=== PATIENT | male | born 1955 ===

== ENCOUNTER → 2022-03-13 09:54 | Outpatient (BNVA) | payer MEDICARE, BC, SELFPAY | PROVIDERS: PCP Internal Medicine; Visit Provider Psychiatry & Neurology Neurology | DX: R20.2 Paresthesia of skin (principal); R51.9 Headache, unspecified; M54.2 Cervicalgia | CPT/HCPCS: 99202 ==

== ENCOUNTER → 2022-06-17 10:32 | Outpatient (BNVA) | payer MEDICARE, BC, SELFPAY | PROVIDERS: PCP Internal Medicine; Visit Provider Psychiatry & Neurology Neurology | DX: R42 Dizziness and giddiness (principal); R41.3 Other amnesia; R51.9 Headache, unspecified; M54.2 Cervicalgia | CPT/HCPCS: 99212 ==

== ENCOUNTER 2022-07-02 09:42 | Outpatient (RCR) | payer MEDICARE, BC, SELFPAY ==
[2022-07-02 09:47] VITALS: BP 150/82; PULSE 80; O2SAT 97
--- NOTE | 2022-07-02 11:01 | MHC.PT.EP ---
[facility] [place] Office [place] [facility] [place] Office [address] Ariadne Soria [address] [phone] F: [phone] F: [phone] F: [phone] F: [phone] Physical Therapy Plan of Care Date of Evaluation: Date of Surgery: Diagnosis: This is a 67 yo male presenting to skilled PT with a script for vertigo. Assessment: This is a 67 yo male presenting to skilled PT with a script for vertigo. Patient reporting symptoms ongoing for many years now however improved until about a year ago now. He had vertigo in the past and was treated with medication; this was helpful. He reports that symptoms are swishing in ears and dizziness when bending over. He reports that he has had decreased balance from the symptoms however is also legally blind as well. PT unable to exam oculomotor tests due to visual impairments at rest, (-) VBI B, but decreased cervical AROM. He was (-) for BPPV with remebrto-hallpike B and roll test B. Balance at baseline is not normal due to visual impairments once again. I assessed orthostatic based on his verbal reports however these were WNL. S/S are not consistent with BPPV or vestibular issues at this time. Recommended follow back up with referring PCP at this time. Frequency and Duration: The patient will be seen Short Term Goals: referral back to PCP Export Sales Assistant Goals: (if needed in future) I in HEP Demo no nystagmus or dizziness in any testing positions Demo normal balance and gait pattern Treatment Plan: Modalities to reduce pain, spasms and effusion. Manual therapy to restore motion and function. Therapeutic exercise to improve strength and flexibility. Neuromuscular re-education for posture and balance. Therapeutic activities to return to functional activities of daily living. Electronically signed by: Chika James PT Please sign and return to therapist. Thank you for your referral.
--- NOTE | 2022-08-10 15:15 | MHC.PT.DC ---
[facility] [place] Office [place] Office [place] Office [address] Ariadne Soria [address] [phone] F: [phone] F: [phone] F: [phone] F: [phone] Physical Therapy Discharge Report Diagnosis: This is a 67 yo male presenting to skilled PT with a script for vertigo. Date of Surgery: Date of Evaluation: 07/02/22 Date of Discharge: 08/10/22 Treatments to Date: 1 Cancellations to Date: 0 No Shows to Date: 0 Discharge Status: Recommend MD Follow-up Discharge Summary: This is a 67 yo male presenting to skilled PT with a script for vertigo. Patient reporting symptoms ongoing for many years now however improved until about a year ago now. He had vertigo in the past and was treated with medication; this was helpful. He reports that symptoms are swishing in ears and dizziness when bending over. He reports that he has had decreased balance from the symptoms however is also legally blind as well. PT unable to exam oculomotor tests due to visual impairments at rest, (-) VBI B, but decreased cervical AROM. He was (-) for BPPV with remberto-hallpike B and roll test B. Balance at baseline is not normal due to visual impairments once again. I assessed orthostatic based on his verbal reports however these were WNL. S/S are not consistent with BPPV or vestibular issues at this time. Recommended follow back up with referring PCP at this time. Electronically signed by: Chika James PT Please sign and return to therapist. Thank you for your referral.
== END 2022-08-10 15:16 | disposition home or self-care (01) ==
LOC: HO.PTCHIC 09:42
PROVIDERS: Visit Provider Psychiatry & Neurology Neurology
DX: R42 Dizziness and giddiness (principal)
CPT/HCPCS: 97110; 97162; 97163

== ENCOUNTER 2022-12-16 08:42 | Outpatient (AMB) | payer MEDICARE, BC, SELFPAY ==
--- NOTE | 2022-12-16 08:44 | A.OFFVIS_ITS ---
Intake Vital Signs 12/16/22 08:48 Height 6 ft Weight 261 lb BMI 35.4 BP 136/78 Blood Pressure Location Rt brachial Position Sitting Pulse 67 Pulse Source Pulse Oximeter Pulse Oximetry (%) 96 Oxygen Delivery Method Room Air Intake Visit Reasons: 6m follow up Paresthesia-LVM Intake Note: Patient present for 6 month follow up Allergies No Known Allergies Allergy (Verified 12/16/22 08:48) Medication List - Last Reconciled 12/16/22 by Imelda Murdock MD acetaminophen (Tylenol Extra Strength) 500 mg PO Q6H PRN atorvastatin 20 mg PO BEDTIME baclofen 10 mg PO BEDTIME cholecalciferol (vitamin D3) 25 mcg PO DAILY CPAP (CPAP Machine/Device) As directed econazole 1% 1 appl topical DAILY famotidine 10 mg PO BID fluticasone propionate 50 mcg/actuation (Allergy Relief (fluticasone)) 2 sprays intranasal DAILY levothyroxine 88 mcg PO DAILY multivitamin (Daily Multi-Vitamin tablet) 1 tab PO DAILY paroxetine HCl 20 mg PO DAILY triamcinolone acetonide 0.1% 1 appl topical DAILY vitamin B complex no.10-FA 400 mcg ER tabs PO HPI HPI Comments History of Present Illness Details 67y/o male comes here for follow up of face tingling and sharp pain in his head. He describes the facial tingling , numbness in waldo V2 distribution has resolved since his last visit. He had a tooth abscess right Upper molar ? - once it was extracted the pain resolved. with baclofen his head pain and neck pain has improved- but he ran out of baclofen He used to get right temporal sharp pain it 2-3 times a day but resolved now He has neck pain and stiffness especially on the neck - less frequent now He has h/o sleep apnea on CPAP. \He reports h/o concussions and is worried about dementia- neuropsych c/w [facility]. [facility] Medical History Anxiety Blindness Carotid artery dissection Cervical radiculopathy Depression DISH (diffuse idiopathic skeletal hyperostosis) Diverticulosis Hypothyroidism Lipoma Macular degeneration Memory change Obesity ANSHUL on CPAP Retinitis pigmentosa Spinal stenosis Vertigo Vitiligo Family History Mother Acute arthritis Dementia Father Colon cancer Hx of CABG Diabetes HTN (hypertension) Acute arthritis Skin cancer Family/Other Thyroid disease Family/Other Acute arthritis Leukemia Family/Other Prostate cancer Social History Alcohol intake: current Alcohol intake frequency: holidays/special occasions only Patient Tobacco Use Status: Never used Tobacco Physical Exam Vital Signs: Last Vital Signs Pulse 67 12/16/22 08:48 BP 136/78 12/16/22 08:48 Pulse Ox 96 12/16/22 08:48 Oxygen Delivery Method Room Air 12/16/22 08:48 BMI result Body Mass Index 35.4 Const General: cooperative, comfortable and no acute distress Nutritional Appearance: obese Orientation/consciousness: patient oriented x3 HEENT Head: Yes normal to inspection Neck Other: tightness and tenderness in right levator and trapezius with restricted range of motion Mild dystonia Neuro General: patient oriented x3, tone normal and moves all extremities Cranial nerves: Yes Facial sensation intact/muscles of mastication intact, Yes Bilaterally intact EOM present, Yes Nystagmus not present, Yes Normal facial strength present and Yes Symmetric palate elevation present Cognition (Neuro): normal cognition Gait exam (Neuro): Normal gait present Motor exam (neuro): 5/5 motor strength present throughout Coordination: [id number] test normal Psych Affect: Anxious affect present Assessment & Plan Assessment & Plan (1) Neck pain: Comment: likely related to dystonia Code(s): M54.2 - Cervicalgia (2) Vertigo: Comment: better with vestibular rehab Code(s): R42 - Dizziness and giddiness (3) Memory change: Comment: did well on neuropsych - c/w mild cognitive impairment Code(s): R41.3 - Other amnesia (4) ANSHUL on CPAP: Code(s): G47.33 - Obstructive sleep apnea (adult) (pediatric); Z99.89 - Dependence on other enabling machines and devices Plan Restart Baclofen to 10mg qhs to help his neck which may help his headache also . will consider botox Continue CPAP - compliance stressed Medications: Refilled baclofen 10 mg PO BEDTIME 30 tabs 6RF Coding Level of Care Code Est Pt Level 4 (62699) Diagnoses Neck pain M54.2 Vertigo R42 Memory change R41.3 ANSHUL on CPAP G47.33; Z99.89
[2022-12-16 08:48] VITALS: BP 136/78; PULSE 67; O2SAT 96; BMI 35.4
== END 2022-12-16 09:03 | disposition home or self-care (01) ==
PROVIDERS: Visit Provider Psychiatry & Neurology Neurology
DX: M54.2 Cervicalgia (principal); R42 Dizziness and giddiness; R41.3 Other amnesia; G47.33 Obstructive sleep apnea (adult) (pediatric); Z99.89 Dependence on other enabling machines and devices
CPT/HCPCS: 99214

== ENCOUNTER → 2022-12-16 08:42 | Outpatient (BNVA) | payer MEDICARE, BC, SELFPAY | PROVIDERS: Visit Provider Psychiatry & Neurology Neurology | DX: R42 Dizziness and giddiness (principal); R41.3 Other amnesia; M54.2 Cervicalgia; G47.33 Obstructive sleep apnea (adult) (pediatric); Z99.89 Dependence on other enabling machines and devices | CPT/HCPCS: 99212 ==

== ENCOUNTER 2023-09-15 08:40 | Outpatient (AMB) | payer MEDICARE, BC, SELFPAY ==
--- NOTE | 2023-09-15 08:51 | A.OFFVIS_ITS ---
Vital Signs 09/15/23 08:52 Height 6 ft Weight 260 lb 6 oz BMI 35.3 BP 140/82 H Blood Pressure Location Rt brachial Position Sitting Respiration 16 Pulse 80 Pulse Source Pulse Oximeter Pulse Oximetry (%) 97 Oxygen Delivery Method Room Air Intake Visit Reasons: 6 month FU-CONF Intake Note: Pt presents for 8 month follow up of memory changes. Team Assembly Line Machine Operator Required: No Allergies No Known Allergies Allergy (Verified 09/15/23 08:51) Medication List - Last Reconciled 09/15/23 by Imelda Murdock MD acetaminophen (Tylenol Extra Strength) 500 mg PO Q6H PRN atorvastatin 20 mg PO BEDTIME cholecalciferol (vitamin D3) 25 mcg PO DAILY CPAP (CPAP Machine/Device) As directed econazole 1% 1 appl topical DAILY famotidine 10 mg PO BID fluticasone propionate 50 mcg/actuation (Allergy Relief (fluticasone)) 2 sprays intranasal DAILY gabapentin 300 mg PO BEDTIME levothyroxine 88 mcg PO DAILY multivitamin (Daily Multi-Vitamin tablet) 1 tab PO DAILY paroxetine HCl 20 mg PO DAILY triamcinolone acetonide 0.1% 1 appl topical DAILY vitamin B complex no.10-FA 400 mcg ER tabs PO HPI Comments Details: 68y/o male comes here for follow up of restless legs syndrome , neck pain . He is doing well on gabapentin 300mg qhs and BiPAP ( managed by Luci Funes) His cognition is stable. He reports h/o concussions and is worried about dementia- neuropsych c/w [facility]. [facility] Medical History Memory change Vertigo Vitiligo Macular degeneration Blindness Diverticulosis Hypothyroidism ANSHUL on CPAP Depression Anxiety Cervical radiculopathy Spinal stenosis Carotid artery dissection Obesity DISH (diffuse idiopathic skeletal hyperostosis) Lipoma Retinitis pigmentosa Family History Mother Acute arthritis Dementia Father Colon cancer Hx of CABG Diabetes HTN (hypertension) Acute arthritis Skin cancer Family/Other Thyroid disease Family/Other Acute arthritis Leukemia Family/Other Prostate cancer Social History Alcohol intake: current Alcohol intake frequency: holidays/special occasions only Patient Tobacco Use Status: Never used Tobacco Physical Exam Vital Signs: Last Vital Signs Pulse 80 09/15/23 08:52 Resp 16 09/15/23 08:52 BP 140/82 H 09/15/23 08:52 Pulse Ox 97 09/15/23 08:52 Oxygen Delivery Method Room Air 09/15/23 08:52 BMI result Body Mass Index 35.3 Const General: cooperative, comfortable and no acute distress Nutritional Appearance: obese Orientation/consciousness: patient oriented x3 HEENT Head: Yes normal to inspection Neck Other: mild restricted range of motion Neuro General: patient oriented x3, tone normal and moves all extremities Cranial nerves: Yes Facial sensation intact/muscles of mastication intact, Yes Bilaterally intact EOM present, Yes Nystagmus not present, Yes Normal facial strength present and Yes Symmetric palate elevation present Cognition (Neuro): normal cognition Gait exam (Neuro): Normal gait present Motor exam (neuro): 5/5 motor strength present throughout Coordination: [id number] test normal Assessment & Plan Assessment & Plan (1) Neck pain: Comment: likely related to dystonia Code(s): M54.2 - Cervicalgia Category: Medical (2) Vertigo: Comment: better with vestibular rehab Code(s): R42 - Dizziness and giddiness Category: Medical (3) Memory change: Comment: did well on neuropsych - c/w mild cognitive impairment Code(s): R41.3 - Other amnesia Category: Medical (4) ANSHUL on CPAP: Code(s): G47.33 - Obstructive sleep apnea (adult) (pediatric); Z99.89 - Dependence on other enabling machines and devices Category: Medical Plan Continue gabapentin 300mg qhs F/u with Dr. Verma Continue BiPAP Medications: Discontinued baclofen Discontinued Reason: Patient no longer taking 10 mg PO BEDTIME 30 tabs 6RF Coding Level of Care Code Est Pt Level 4 (61393) Diagnoses Neck pain M54.2 Vertigo R42 Memory change R41.3 ANSHUL on CPAP G47.33; Z99.89
[2023-09-15 08:52] VITALS: BP 140/82; PULSE 80; RESP 16; O2SAT 97; BMI 35.3
== END 2023-09-15 09:36 | disposition home or self-care (01) ==
LOC: HO.HSMS 08:40
PROVIDERS: PCP Internal Medicine; Visit Provider Psychiatry & Neurology Neurology
DX: M54.2 Cervicalgia (principal); R42 Dizziness and giddiness; R41.3 Other amnesia; G47.33 Obstructive sleep apnea (adult) (pediatric); Z99.89 Dependence on other enabling machines and devices
CPT/HCPCS: 99214

== ENCOUNTER → 2023-09-15 08:40 | Outpatient (BNVA) | payer MEDICARE, BC, SELFPAY | PROVIDERS: PCP Internal Medicine; Visit Provider Psychiatry & Neurology Neurology | DX: G47.33 Obstructive sleep apnea (adult) (pediatric) (principal); R42 Dizziness and giddiness; M54.2 Cervicalgia; R41.3 Other amnesia; Z99.89 Dependence on other enabling machines and devices | CPT/HCPCS: 99212 ==